=== PATIENT | male | born 1965 | race Hispanic/Latino ===

== ENCOUNTER → 2025-01-04 | Day surgery (SDC) | payer OTHER ==
[~2025-01-04] MED LIST: FENTANYL CITRATE/PF 100MCG/2 ML INJ ONE; HYOSCYAMINE SULFATE 0.5 MG/ML INJ ONE; LIDOCAINE HCL 2% LOCAL INJ 5 ML SDV VIAL INJ ONE; MORINGA PO; ONDANSETRON HCL INJ 2MG/ML 2ML 2 MG/ML VIAL ONE; PROPOFOL IV EMULSION 50 ML IV ONE; TUMERSAID TABL1 EACH PO
[2025-01-04] MEDS: LACTATED RINGER'S 1,000 ML ONE (10:11)
[2025-01-04 12:26] VITALS: TEMP 98.5
[2025-01-04 12:48] VITALS: BP 130/80; PULSE 71; RESP 18; O2SAT 99
== END | disposition home or self-care (01) ==
LOC: OR 09:27
PROVIDERS: ATTEND Internal Medicine Gastroenterology
DX: Z12.11 Encounter for screening for malignant neoplasm of colon (principal); D12.3 Benign neoplasm of transverse colon; K64.8 Other hemorrhoids; Z71.89 Other specified counseling; Z01.810 Encounter for preprocedural cardiovascular examination; Z68.28 Body mass index [BMI] 28.0-28.9, adult; Z71.3 Dietary counseling and surveillance
CPT/HCPCS: 45385; 93005; J1980; J2003; J2405; J2704; J3010; J7121; 45378